=== PATIENT | female | born 1950 | race Hispanic/Latino ===

== ENCOUNTER 2024-04-29 07:31 | Emergency (ER) | payer MEDICARE ==
[~2024-04-29] VITALS: Ht 157.5 cm; Wt 65.8 kg
[2024-04-29 07:32] VITALS: PULSE 78; RESP 18; TEMP 98.6; O2SAT 98
[2024-04-29] MEDS: LIDOCAINE HCL 1% LOCAL INJ 20 ML VIAL INJ STA (08:05)
== END 2024-04-29 07:51 | disposition home or self-care (01) ==
LOC: ER 07:45
DX: I83.891 Varicose veins of right lower extremity with other complications (principal)
CPT/HCPCS: 99282

== ENCOUNTER 2024-05-28 10:45 | Emergency (ER) | payer MEDICARE ==
[~2024-05-28] VITALS: Ht 157.5 cm; Wt 65.8 kg
[2024-05-28 11:06] VITALS: PULSE 77; RESP 15; TEMP 97.8; O2SAT 99
== END 2024-05-28 12:40 | disposition home or self-care (01) ==
LOC: ER 11:06
DX: Z48.02 Encounter for removal of sutures (principal)
CPT/HCPCS: 99282